=== PATIENT | female | born 1985 | race Two or more races ===

== ENCOUNTER → 2019-05-01 16:34 | Outpatient (CLI) | payer OTHER | END | disposition home or self-care (01) | LOC: LAB 16:34 | DX: J11.1 Influenza due to unidentified influenza virus with other respiratory manifestations (principal); J11.81 Influenza due to unidentified influenza virus with encephalopathy ==

== ENCOUNTER 2019-08-30 16:29 | Emergency (ER) | payer OTHER ==
[~2019-08-30] VITALS: Ht 172.7 cm; Wt 77.1 kg
== END 2019-08-30 20:30 | disposition home or self-care (01) ==
LOC: ER 16:29
DX: O20.0 Threatened abortion (principal)

== ENCOUNTER → 2020-04-07 | Outpatient (CLI) | payer OTHER | END | disposition home or self-care (01) | LOC: PRENATAL 12:59 | DX: O35.3XX1 Maternal care for (suspected) damage to fetus from viral disease in mother, fetus 1 (principal); O09.512 Supervision of elderly primigravida, second trimester ==

== ENCOUNTER 2021-11-02 08:09 | Outpatient (CLI) | payer OTHER | END 2021-11-02 09:15 | disposition home or self-care (01) | LOC: PRENATAL 08:09 | PROVIDERS: ATTEND Obstetrics & Gynecology Maternal & Fetal Medicine | DX: O35.0XX1 Maternal care for (suspected) central nervous system malformation in fetus, fetus 1 (principal); O35.3XX1 Maternal care for (suspected) damage to fetus from viral disease in mother, fetus 1; O98.512 Other viral diseases complicating pregnancy, second trimester; O09.512 Supervision of elderly primigravida, second trimester; O26.872 Cervical shortening, second trimester; Z36.89 Encounter for other specified antenatal screening; Z3A.23 23 weeks gestation of pregnancy ==

== ENCOUNTER 2021-11-30 09:44 | Outpatient (CLI) | payer OTHER | END 2021-11-30 11:11 | disposition home or self-care (01) | LOC: PRENATAL 09:44 | PROVIDERS: ATTEND Obstetrics & Gynecology Maternal & Fetal Medicine | DX: O26.842 Uterine size-date discrepancy, second trimester (principal); O26.872 Cervical shortening, second trimester; O09.522 Supervision of elderly multigravida, second trimester; Z36.89 Encounter for other specified antenatal screening; Z3A.27 27 weeks gestation of pregnancy ==